=== PATIENT | male | born 1960 | race Caucasian/White ===

== ENCOUNTER 2025-07-06 09:14 | Day surgery (SDC) | payer MEDICARE ==
[2025-07-06] MEDS ORDERED: methylPREDNISolone acetate IM ONE (09:15)
[2025-07-06] MEDS ORDERED: LIDOCAINE HCL 2% 100 MG/5 ML IJ ONE (09:15)
[2025-07-06] MEDS ORDERED: propofoL IV ONE (10:57)
[2025-07-06] MEDS ORDERED: Xylocaine-Mpf 2% 5 Ml Vial ONE (11:01)
--- NOTE | 2025-07-06 12:26 | XRAY ---
Indication: Bilateral L4-S1 MBB. Intraoperative fluoroscopy provided for 13 seconds. Single digital spot image submitted for interpretation demonstrates posterior needle tips projecting over expected left and right L4-S1 nerve roots. Correlate with intraoperative findings/report.
--- NOTE | 2025-07-06 12:52 | XRAY ---
13 seconds of fluoroscopy was used in surgery for a bilateral L4-S1 MBB.
[2025-07-06] MEDS ORDERED: Lactated Ringers 1,000 ML IV ONE (14:49)
== END 2025-07-06 11:36 | disposition home or self-care (01) ==
LOC: SDC-PAIN 09:14
PROVIDERS: ATTEND Psychiatry & Neurology Pain Medicine
DX: M47.817 Spondylosis without myelopathy or radiculopathy, lumbosacral region (principal); R73.03 Prediabetes